=== PATIENT | female | born 1975 | race Caucasian/White ===

== ENCOUNTER 2018-03-27 22:51 | Emergency (ER) | payer SELFPAY ==
[~2018-03-27] VITALS: Ht 152.4 cm; Wt 52.3 kg
[2018-03-27 22:54] VITALS: Ht 152.4 cm; Wt 52.3 kg
[2018-03-28] MEDS ORDERED: EPIPEN0.3 MG/0.3 IM (01:30)
[2018-03-28] MEDS ORDERED: PREDNISONE50 MG PO (01:30)
[2018-03-28 01:43] VITALS: BP 114/70
== END 2018-03-28 01:43 | disposition home or self-care (01) ==
LOC: D.ER 22:51
DX: T78.2XXA Anaphylactic shock, unspecified, initial encounter (principal); R13.10 Dysphagia, unspecified

== ENCOUNTER 2018-05-23 10:20 | Emergency (ER) | payer SELFPAY ==
[~2018-05-23] VITALS: Ht 152.4 cm; Wt 52.3 kg
[~2018-05-23 10:20] MED LIST: EPIPEN0.3 MG/0.3 IM; PREDNISONE50 MG PO
[2018-05-23 10:29] VITALS: Ht 152.4 cm; Wt 52.3 kg
[2018-05-23 11:09] LABS: BASOPHILS 1.1 % (0-2); EOSINOPHILS 2.6 % (0-7); HEMOGLOBIN 13.2 g/dL (12-16); IMMATURE GRANULOCYTES 0.3 % (0-5); LYMPHOCYTES 24.2 % (15-50); MCH 30.9 pg (26.0-34.0); MCHC 33.8 g/dL (31.0-37.0); MCV 91.3 fL (80.0-100.0); MONOCYTES 5.5 % (2-11); NEUTROPHILS 66.3 % (40-80); PLATELET COUNT 355 10x3/uL (130-400); RBC 4.27 10x6/uL (4.00-5.40); RDW 13.4 % (11.5-14.5); WBC 8.9 10x3/uL (4.8-10.8)
[2018-05-23 11:23] LABS: ALBUMIN 3.8 g/dL (3.4-5.0); ALKALINE PHOSPHATASE 51 U/L (46-116); ALT (SGPT) 16 U/L (10-68); CALC OSMOLALITY 278 mosm/kg (275-300); CARBON DIOXIDE 27.4 mmol/L (21.0-32.0); CHLORIDE - SERUM 104 mmol/L (98-107); GLUCOSE 118 mg/dL (74-106); POTASSIUM - SERUM 3.8 mmol/L (3.5-5.1); PROTEIN - SERUM 7.2 g/dL (6.4-8.2); SODIUM 140 mmol/L (136-145); UREA NITROGEN 10 mg/dL (7-18); eGFR NON AFRICAN AMERICAN 64 mL/min (90-120)
[2018-05-23 11:34] LABS: CKMB 0.6 U/L (0.0-3.6); CREATINE KINASE 42 UL (21-215)
[2018-05-23 11:35] LABS: TROPONIN-I < 0.017 ng/mL (0.000-0.060)
[2018-05-23] MEDS ORDERED: ATIVAN1 MG PO (12:22)
[2018-05-23 12:50] VITALS: BP 141/89
== END 2018-05-23 12:51 | disposition home or self-care (01) ==
LOC: D.ER 10:20
PROVIDERS: Emergency Medicine
DX: R06.02 Shortness of breath (principal); M54.9 Dorsalgia, unspecified